=== PATIENT | female | born 1950 | race Caucasian/White ===

== ENCOUNTER 2019-08-07 17:51 | Emergency (ER) | payer MEDICAID, MEDICARE ==
[~2019-08-07] VITALS: Ht 157.5 cm; Wt 98.0 kg
[~2019-08-07 17:51] MED LIST: AMLO5TAB88 PO; LANTUSUD SUBCUT; LOSA50TA3 PO; METF-416 MT; OMEP40CA12 MT; SUCR1ORA15 PO
[2019-08-07 18:27] VITALS: BP 132/56
== END 2019-08-07 22:30 | disposition left against medical advice (07) ==
LOC: ER 17:51
DX: R68.89 Other general symptoms and signs (principal); Z53.21 Procedure and treatment not carried out due to patient leaving prior to being seen by health care provider
CPT/HCPCS: 82962